=== PATIENT | male | born 1940 | race Caucasian/White ===

== ENCOUNTER → 2017-08-16 08:47 | Outpatient (CLI) | payer MEDICARE, BC, SELFPAY ==
--- NOTE | 2017-08-16 08:51 | AAVD_ITS ---
Reason For Study: Aortoiliac occlusive disease Aorta Measurements Aorta Doppler Measurements Proximal aorta measures1.8 x 1.9cm. in cross- Peak systolic flow velocities within the proximal sectional axis. aorta measure 53.8 cm/sec. Proximal aorta measures1.9cm. in longitudinal Peak systolic flow velocities within the mid axis. aorta measure 37.0 cm/sec. Mid aorta measures2.0 x 2.0cm. in cross-sectionalPeak systolic flow velocities within the distal axis. aorta measure 38.9 cm/sec. Mid aorta measures2.0cm. in longitudinal axis. Distal aorta measures2.2 x 2.1cm. in cross- sectional axis. Distal aorta measures2.1cm. in longitudinal axis. Left Iliac Artery Left iliac artery measures .98 cm. in the longitudinal axis. Left iliac artery measures .89 x .93 cm. in the cross-sectional axis. Peak systolic velocity in the left iliac artery measures 48.1 cm/sec. Right Iliac Artery Right iliac artery measures .72 cm. in the longitudinal axis. Right iliac artery measures .76 x .78 cm. in the cross-sectional axis. Peak systolic velocity in the right iliac artery measures 60.0 cm/sec. Procedure Aorta IVC Iliac vasculature or bypass grafts [id number]. Exam performed in department. Interpretation Summary 1. No aortoliliac aneurysm or stenosis. Ordering Physician: Bradley Morales Referring Physician: Doc Singh Performed By: Beronica Greenberg RVT
== END ==
PROVIDERS: Family Provider Internal Medicine Infectious Disease; PCP Internal Medicine Infectious Disease; Visit Provider Surgery Vascular Surgery
DX: I70.213 Atherosclerosis of native arteries of extremities with intermittent claudication, bilateral legs (principal); F17.200 Nicotine dependence, unspecified, uncomplicated; I12.9 Hypertensive chronic kidney disease with stage 1 through stage 4 chronic kidney disease, or unspecified chronic kidney disease; N18.9 Chronic kidney disease, unspecified; E78.00 Pure hypercholesterolemia, unspecified; I25.2 Old myocardial infarction
CPT/HCPCS: 93978

== ENCOUNTER → 2017-08-24 10:51 | Outpatient (CLI) | payer MEDICARE, BC, SELFPAY ==
--- NOTE | 2017-08-29 11:41 | LEAS ---
Arterial Study - Arterial Study Arterial Study: Record number: [id number] Date of scan 08/24/[address] Morales Indication patient with history of claudication and peripheral vascular disease. Also with known hypertension hyperlipidemia and tobacco abuse. Next Interpretation: Right lower extremity is pulsatile flow noted at the ankle duplex shows biphasic flow both vessels with an STEVE 0.8 in the posterior tibial 0.8 for the dorsalis pedis. Left lower extremity shows also pulsatile flow with biphasic flow the vessels at the ankle with an STEVE 0.690 posterior tibial 0.57 of the dorsalis pedis. Impression: 1. 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 Left lower extremity with moderate arterial occlusive disease with an STEVE 0.69
--- NOTE | 2017-08-29 12:08 | LEAS_ITS ---
Arterial Study - Arterial Study Arterial Study: Record number: [id number] Date of scan 08/24/[address] Morales Indication patient with history of claudication and peripheral vascular disease. Also with known hypertension hyperlipidemia and tobacco abuse. Next Interpretation: Right lower extremity is pulsatile flow noted at the ankle duplex shows biphasic flow both vessels with an STEVE 0.8 in the posterior tibial 0.8 for the dorsalis pedis. Left lower extremity shows also pulsatile flow with biphasic flow the vessels at the ankle with an STEVE 0.690 posterior tibial 0.57 of the dorsalis pedis. Impression: 1. 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 Left lower extremity with moderate arterial occlusive disease with an STEVE 0.69
== END ==
PROVIDERS: Family Provider Internal Medicine Infectious Disease; PCP Internal Medicine Infectious Disease; Visit Provider Surgery Vascular Surgery
DX: I70.213 Atherosclerosis of native arteries of extremities with intermittent claudication, bilateral legs (principal); F17.200 Nicotine dependence, unspecified, uncomplicated; I12.9 Hypertensive chronic kidney disease with stage 1 through stage 4 chronic kidney disease, or unspecified chronic kidney disease; N18.9 Chronic kidney disease, unspecified; E78.70 Disorder of bile acid and cholesterol metabolism, unspecified; I25.2 Old myocardial infarction
CPT/HCPCS: 93922

== ENCOUNTER → 2018-09-16 08:42 | Outpatient (CLI) | payer MEDICARE, BC, SELFPAY ==
--- NOTE | 2018-09-16 08:50 | ART_ITS ---
Reason For Study: Aortic Stenosis Procedure A bilateral lower extremity continuous wave Doppler with analog waveform analysis and ankle brachial indexes. Left Segmental Pressures Left brachial= 185mmHg. Left posterior tibial artery = 134mmHg. Left dorsalis pedis artery = 127mmHg. The left dorsalis pedis waveforms are biphasic. The left posterior tibial artery waveforms are biphasic. Right Segmental Pressures Right brachial= 173mmHg. Right posterior tibial artery = 166mmHg. Right dorsalis pedis artery = 173mmHg. The right dorsalis pedis waveforms are biphasic. The right posterior tibial artery waveforms are biphasic. Indices The right ankle brachial index by the dorsalis pedis is 0.94. The right ankle brachial index by the posterior tibial artery is 0.90. The left ankle brachial index by the dorsalis pedis is 0.69. The left ankle brachial index by the posterior tibial artery is 0.72. Interpretation Summary 1. Right mld oclussive disease with biphasic flow but normal samaria 0.94 2. Left leg with mild occlussive disease wth bipashic flow and samaria 0.72. Ordering Physician: Bradley Morales Referring Physician: Alissa Singh Performed By: Shreyas Stevenson RVT and Student
--- NOTE | 2018-09-16 08:50 | AAVD_ITS ---
Reason For Study: Atherosclerosis Aorta Measurements Aorta Doppler Measurements Proximal aorta measures1.69 x 1.71cm. in cross- Peak systolic flow velocities within the proximal sectional axis. aorta measure 35.1 cm/sec. Proximal aorta measures1.74cm. in longitudinal Peak systolic flow velocities within the mid aorta axis. measure 38.2 cm/sec. Mid aorta measures2.03 x 2.01cm. in cross- Peak systolic flow velocities within the distal sectional axis. aorta measure 43 cm/sec. Mid aorta measures2.02cm. in longitudinal axis. Distal aorta measures2.28 x 2.28cm. in cross- sectional axis. Distal aorta measures2.29cm. in longitudinal axis. Left Iliac Artery Left iliac artery measures 1.00 x 1.00 cm. in the cross-sectional axis. Left iliac artery measures 1.03 cm. in the longitudinal axis. Peak systolic velocity in the left iliac artery measures 75.7 cm/sec. Right Iliac Artery Right iliac artery measures 1.11 x 1.03 cm. in the cross-sectional axis. Right iliac artery measures 1.05 cm. in the longitudinal axis. Peak systolic velocity in the right iliac artery measures 83.9 cm/sec. Procedure Aorta IVC Iliac vasculature or bypass grafts [id number]. Exam performed in department. Interpretation Summary 1. No evidence of aortoiliac aneurysm or stenoiss. Ordering Physician: Bradley Morales Referring Physician: Omran. Maxwell Performed By: Shreyas Stevenson RVT and Student
== END ==
PROVIDERS: Family Provider Internal Medicine Infectious Disease; PCP Internal Medicine Infectious Disease; Referring Provider Surgery Vascular Surgery; Visit Provider Surgery Vascular Surgery
DX: I70.213 Atherosclerosis of native arteries of extremities with intermittent claudication, bilateral legs (principal); I77.1 Stricture of artery; F17.200 Nicotine dependence, unspecified, uncomplicated; I12.9 Hypertensive chronic kidney disease with stage 1 through stage 4 chronic kidney disease, or unspecified chronic kidney disease; N18.9 Chronic kidney disease, unspecified; E78.00 Pure hypercholesterolemia, unspecified; I25.2 Old myocardial infarction
CPT/HCPCS: 93922; 93978